=== PATIENT | female | born 1980 | race American Indian/Alaskan Native ===

== ENCOUNTER 2017-05-31 09:27 | Emergency (ER) | payer MEDICAID, OTHER ==
[2017-05-31 10:16] VITALS: BMI 32.5
--- NOTE | 2017-05-31 14:19 | OBDCSUM ---
Datetime: 05/31/2017 13:28 Discharged to, Provider: Home Follow up at, Provider: Dr Vicente Disch Instr Activity: Normal activity Disch Instr Diet: Regular Discharge Instructions, Provider: Routine instructions given Discharge Time: 05/31/2017 13:29 Follow up in weeks, Provider: Next scheduled appointments Disch Referrals: None Contraception discussed, Prov: Yes Discharge Diagnosis Prov Other: false labor
--- NOTE | 2017-05-31 14:19 | OBHP ---
Datetime: 05/31/2017 14:13 IP Adm Impression: Term, intrauterine IP Admit Plan: Observation/Evaluation; Discharge home Admit Comment, IP Provider: Patient is a @ 39.3 wks with contractions and vaginal spotting, denies leaking, +FM. Patient was checked twice and made no cervical change. /-3. [id number] mod sarah, +accels, no decels. Labor precautions given. F/U in office next week Pelvic Type - PN: Adequate Extremities - PN: Normal Abdomen - PN: Normal Back - PN: Normal Breast - PN: Normal Lungs - PN: Normal Heart - PN: Normal Thyroid - PN: Normal Neurologic - PN: Normal HEENT - PN: Normal General - PN: Normal FHR - Baseline A Provider: 125 Contraction Comments Provider: irregularly EGA AdmitDate IP: 39.3 Vital Signs Provider: Reviewed; Within Normal Limits IP Chief Complaint: Uterine contractions NICHD Variability Prov Fetus A: Moderate 6-25bpm NICHD Accel Fetus A IP Provider: [id number] FHR Category Provider Fetus A: Category I NICHD Decel Fetus A IP Provider: None Dilatation, Provider: 4 Effacement, Provider: 50 Station, Provider: -3 Genitourinary Exam: Normal DTRs - PN: Normal
[2017-05-31 23:25] VITALS: BP 104/64; PULSE 97; RESP 17; TEMP 98.7
== END 2017-05-31 13:29 | disposition home or self-care (01) ==
LOC: H.EROB2 09:27
DX: O47.1 False labor at or after 37 completed weeks of gestation (principal); O26.93 Pregnancy related conditions, unspecified, third trimester; R10.2 Pelvic and perineal pain; O26.853 Spotting complicating pregnancy, third trimester; Z3A.39 39 weeks gestation of pregnancy

== ENCOUNTER 2017-06-02 20:45 | Inpatient (IN) | payer MEDICAID ==
[2017-06-02 21:04] VITALS: BMI 32.1
[2017-06-02] MEDS: Lactated Ringer's 1,000 ML IV SCH ×4 (21:30→23:57)
[2017-06-02] MEDS ORDERED: Oxytocin 30 units/LR 500ML 30 UNITS/500 ML BAG IV ONE (21:48)
[2017-06-02] MEDS ORDERED: Oxytocin 30 units/LR 500ML 30 U/500 ML BAG IV ONE (21:53)
[2017-06-02 22:00] LABS: BASO % 0.4 % (0.0-2.0); EOS # 0.1 K/uL (0.0-0.7); EOS % 0.9 % (0.0-4.0); HEMOGLOBIN 11.2 g/dL (12.0-16.0); LYMPH # 2.7 K/uL (1.0-4.3); LYMPH % 31.2 % (20.0-40.0); MEAN CELL VOLUME 92.2 fl (81.0-99.0); MEAN CORPUSCULAR HEMOGLOBIN 30.4 pg (27.0-31.0); MEAN CORPUSCULAR HGB CONC 32.9 g/dL (33.0-37.0); MEAN PLATELET VOLUME 6.9 fl (7.2-11.7); MONO # 1.1 K/uL (0.0-0.8); MONO % 12.7 % (0.0-10.0); NEUT # 4.7 K/uL (1.8-7.0); NEUT % 54.8 % (50.0-75.0); NRBC % 0.1 % (0.0-0.0); RBC 3.7 Mil/uL (3.80-5.20); RED CELL DISTRIBUTION WIDTH 13.3 % (11.5-14.5); WHITE BLOOD COUNT 8.5 K/uL (4.8-10.8)
[2017-06-02] MEDS ORDERED: Penicillin G Potassium 5 MU in Sodium Chloride 0.9% 50 ML IVPB ONE (22:03)
[2017-06-02] MEDS ORDERED: Bupivacaine HCl 0.25% PF (10 ml) Inj ONE (22:12)
[2017-06-02] MEDS ORDERED: Fentanyl/Bupivacaine HCl 250 ML EPI ONE (22:12)
--- NOTE | 2017-06-03 03:28 | OBDS ---
DELIVERY PERSONNEL Delivery Doctor: Natasha Gandhi MD Physical Science Aide: [facility] Anesthesiologist: Hernán Barber MD Resident: Dr. Villalobos, PGY1 MATERNAL INFORMATION Delivery Anesthesia: Epidural Medications in Delivery: Pitocin 30 units in 500 mls Estimated Blood Loss (ml): 100 Placenta Cultured: No Maternal Complications: None Provider Comments: of live male infant over intact perineum in LOP presentation, followed by jacey villa and rest of infant atraumatically, 6lbs 15 oz, 9/9, mouth and nose suctioned, cord clamped an d cut, infant placed on mother's chest, cord blood obtained, placenta delivered spontaneously, EBL=10 0mL, no lacerations to repair, pt tolerated procedure well LABOR SUMMARY EDC: 06/04/2017 00:00 No. Babies in Womb: 1 Attempted: No Labor Anesthesia: Epidural LABOR INFORMATION Reason for Induction: Not Applicable Oxytocin: N/A Group B Beta Strep: Positive Antibiotics # of Doses: 2 Antibiotics Time of Last Dose: 0140 Steroids Given: None Reason Steroids Not Administered: Not Applicable MEMBRANES Membranes Rupture Method: Spontaneous Rupture of Membranes: 06/02/2017 20:10 Length of Rupture (hrs): 6.90 Amniotic Fluid Color: Clear Amniotic Fluid Amount: Moderate Amniotic Fluid Odor: Normal STAGES OF LABOR Stage 3 hrs: 0 Stage 3 min: 2 VAGINAL DELIVERY Episiotomy: None Laceration Extension: N/A Laceration Type: None Laceration Repair: Not Applicable Initial Vag Sponge Count: 5 Final Vag Sponge Count: 5 Initial Vag Sharps Count: 0 Final Vag Sharps Count: 0 Sponge Count Correct: N/A Sharps Count Correct: N/A BABY A INFORMATION Infant Delivery Date/Time: 06/03/2017 03:04 Method of Delivery: Vaginal Born in Route : No : N/A Forceps: N/A Vacuum Extraction: N/A Shoulder Dystocia : No SHOULDER DYSTOCIA BABY A Delivery Date/Time: 06/03/2017 03:04 PRESENTATION/POSITION BABY A Presentation: Cephalic Cephalic Presentation: Vertex Breech Presentation: N/A PLACENTA INFORMATION BABY A Placenta Delivery Time : 06/03/2017 03:06 Placenta Method of Delivery: Spontaneous Placenta Status: Delivered SCORES BABY A Heart Rate 1 min: >100 bpm Resp Effort 1 min: Good Cry Reflex Irritability 1 min: Cough or Sneeze or Pulls Away Muscle Tone 1 min: Active Motion Color 1 min: Body [place], Extremities Blue Resuscitation Effort 1 min: N/A SCORE 1 MIN: 9 Heart Rate 5 min: >100 bpm Resp Effort 5 min: Good Cry Reflex Irritability 5 min: Cough or Sneeze or Pulls Away Muscle Tone 5 min: Active Motion Color 5 min: Body [place], Extremities Blue Resuscitation Effort 5 min: N/A SCORE 5 MIN: 9 INFANT INFORMATION BABY A Gestational Age at Delivery: 39.6 Gestational Status: Term Infant Outcome : Liveborn Infant Condition : Stable Infant Sex: Male IDENTIFICATION/MEDS BABY A ID Band Number: [id number] ID Band Location: Left Leg; Left Arm WEIGHT/LENGTH BABY A Infant Birthweight (gms): 3155 Weight (lb): 6 Weight (oz): 15 CORD INFORMATION BABY A No. Cord Vessels: 3 Nuchal Cord : N/A Nuchal Cord Other: N/A True Knot: N/A Cord pH Baby Arterial: N/A Cord pH Baby Venous: N/A Cord Blood Taken: Yes Banking/Donate Info: N/A Infant Suction: Mouth; Nose ASSESSMENT BABY A Complications: Multiple Variable Decels Physical Findings at Delivery: Within Normal Limits; Molding of the Head Respirations: Appears Normal Lay Out Carpenter/ALS Called : No Transferred To: Remains with Mother
[2017-06-03] MEDS ORDERED: Oxycodone/Acetaminophen 5/325 mg Tab PO PRN ×4 (03:29→06:51)
[2017-06-03] MEDS ORDERED: Benzocaine/Menthol SPRAY TOP PRN ×2 (03:29→06:51)
[2017-06-03] MEDS: Multivitamin With Minerals Tab PO SCH (08:36)
[2017-06-03] MEDS ORDERED: Multivitamin With Minerals Tab PO SCH (09:00)
[2017-06-04 06:37] LABS: BASO % 0.3 % (0.0-2.0); EOS # 0.1 K/uL (0.0-0.7); HEMOGLOBIN 9.9 g/dL (12.0-16.0); LYMPH # 2.2 K/uL (1.0-4.3); LYMPH % 22.3 % (20.0-40.0); MEAN CELL VOLUME 92.3 fl (81.0-99.0); MEAN CORPUSCULAR HGB CONC 33.6 g/dL (33.0-37.0); MEAN PLATELET VOLUME 7.2 fl (7.2-11.7); MONO % 9.9 % (0.0-10.0); NEUT # 6.5 K/uL (1.8-7.0); NEUT % 66.5 % (50.0-75.0); RBC 3.2 Mil/uL (3.80-5.20); RED CELL DISTRIBUTION WIDTH 13.2 % (11.5-14.5); WHITE BLOOD COUNT 9.8 K/uL (4.8-10.8)
[2017-06-04] MEDS: Multivitamin With Minerals Tab PO SCH (10:21)
--- NOTE | 2017-06-04 11:42 | OBPPN ---
Datetime: 06/04/2017 11:27 PP Pain Prov: Within normal limits PP Nausea Prov: Denies PP Flatus Prov: Yes PP BM Prov: Yes PP Breasts Prov: Normal PP Heart Prov: Normal PP Lungs Prov: Normal PP Abdomen/Uterus Prov: Normal PP Lochia Prov: Normal PP Vulva/Perineum Prov: Normal PP CVA Tenderness Prov: Normal PP Extremities Prov: Normal PP Impression Prov: Normal progression PP Plan Prov: Continue present management PP Progress Note Prov: She feels fine today H/H 11/23 A: S/P day 1; anemia asymptomatic PLAN anticipate discharge in AM Vital Signs Provider PP: Reviewed
[2017-06-05] MEDS: Multivitamin With Minerals Tab PO SCH (10:33)
[2017-06-05] MEDS ORDERED: Measles, Mumps, and Rubella 0.5 ML VIAL SC ONE (15:26)
[2017-06-06 01:46] VITALS: BP 119/82; PULSE 68; RESP 18; TEMP 97; O2SAT 99
== END 2017-06-05 15:00 | disposition home or self-care (01) | DRG 373 ==
LOC: H.EROB2 20:45 → H.L&D 21:24 → H.OB/GYN 06-03 06:00
PROVIDERS: ADMIT Obstetrics & Gynecology; ATTEND Obstetrics & Gynecology
PROC: 4A1HXCZ Monitoring of Products of Conception, Cardiac Rate, External Approach (ICD-10-PCS; 2017-06-02)
PROC: 10E0XZZ Delivery of Products of Conception, External Approach (ICD-10-PCS; principal; 2017-06-03)
DX: O76 Abnormality in fetal heart rate and rhythm complicating labor and delivery (principal); O99.820 Streptococcus B carrier state complicating pregnancy; Z37.0 Single live birth; Z3A.39 39 weeks gestation of pregnancy; Z91.040 Latex allergy status